=== PATIENT | male | born 1985 | race Caucasian/White ===

== ENCOUNTER 2019-07-15 16:49 | Emergency (ER) | payer SELFPAY ==
[~2019-07-15] VITALS: Ht 185.4 cm; Wt 117.9 kg
[~2019-07-15 16:49] MED LIST: Bactrim Ds Tab1 EACH PO; HYDACE5 PO; Prednisone20 MG PO; RXHYDACE PO
[2019-07-15] MEDS ORDERED: KETOROLAC TROMET5 ML TOP (19:04)
[2019-07-15] MEDS ORDERED: ERYT.5TO RIGHTEYE (19:04)
== END 2019-07-15 19:27 | disposition home or self-care (01) ==
LOC: ER 16:49
DX: T15.01XA Foreign body in cornea, right eye, initial encounter (principal); H10.9 Unspecified conjunctivitis; F17.210 Nicotine dependence, cigarettes, uncomplicated
CPT/HCPCS: 65220; 70480; 90471; 90714; 99283-25; A9270

== ENCOUNTER 2019-11-24 20:30 | Emergency (ER) | payer SELFPAY | END 2019-11-24 23:38 | disposition home or self-care (01) | LOC: ER 20:30 | DX: L02.413 Cutaneous abscess of right upper limb (principal); L03.114 Cellulitis of left upper limb; F17.210 Nicotine dependence, cigarettes, uncomplicated ==

== ENCOUNTER 2020-05-12 12:50 | Emergency (ER) | payer OTHER ==
[~2020-05-12] VITALS: Ht 185.4 cm; Wt 108.9 kg
[~2020-05-12 12:50] MED LIST changes: +CEPH500 PO; +ERYT.5TO RIGHTEYE; +KETOROLAC TROMET5 ML TOP; +Monodox100 MG PO
[2020-05-12] MEDS ORDERED: Bactrim Ds Tab1 EACH PO (15:04)
== END 2020-05-12 15:30 | disposition home or self-care (01) ==
LOC: ER 12:50
DX: L02.413 Cutaneous abscess of right upper limb (principal); L02.416 Cutaneous abscess of left lower limb; L03.116 Cellulitis of left lower limb; F17.210 Nicotine dependence, cigarettes, uncomplicated; Z23 Encounter for immunization; Z79.899 Other long term (current) drug therapy
CPT/HCPCS: 90471; 90714; 99283-25; A9270

== ENCOUNTER 2023-01-02 12:25 | Observation (INO) | payer OTHER ==
[~2023-01-02] VITALS: Ht 185.4 cm; Wt 101.9 kg
[2023-01-02 13:06] LABS: BASOPHILS ABSOLUTE AUTO 0.04 K/mm3 (0.00-0.23); BASOPHILS PERCENT AUTO 1 % (0-2); EOSINOPHILS ABSOLUTE AUTO 0.28 K/mm3 (0.00-0.68); EOSINOPHILS PERCENT AUTO 3 % (0-6); Hematocrit 45.1 % (37.0-53.0); IMMATURE GRAN ABSOLUTE AUTO 0.06 K/mm3 (0.00-0.10); IMMATURE GRAN PERCENT AUTO 1 % (0-1); LYMPHOCYTES PERCENT AUTO 26 % (21-46); MONOCYTES ABSOLUTE AUTO 0.66 K/mm3 (0.16-1.47); MONOCYTES PERCENT AUTO 8 % (4-13); Mean Corpuscular HGB 28.8 pg (26.0-34.0); Mean Corpuscular HGB Conc 33.3 g/dL (31.5-36.5); Mean Corpuscular Volume 87 fL (80-100); Mean Platelet Volume 10.3 fL (9.1-12.4); NEUTROPHILS ABSOLUTE AUTO 5.37 K/mm3 (1.96-9.15); NEUTROPHILS PERCENT AUTO 62 % (41-73); Platelet Count 229 K/mm3 (150-400); RDW Coefficient Variation 13.2 % (11.7-14.2); RDW Standard Deviation 41.4 fL (35.1-46.3); Red Blood Cell Count 5.21 M/mm3 (4.30-5.90); White Blood Cell Count 8.71 K/mm3 (4.00-11.30)
[2023-01-02 13:27] LABS: Albumin, Blood 4.3 g/dL (3.4-5.0); Albumin/Globulin Ratio 1.1 (0.8-1.8); Bilirubin, Total 0.6 mg/dL (0.1-1.0); Bun/Creatinine Ratio 19.5 (12.0-20.0); Creatinine, Blood 0.92 mg/dL (0.60-1.20); Globulin, Blood 3.8 g/dL (2.2-4.0); Potassium, Blood 3.5 mmol/L (3.5-5.5); Total Protein, Blood 8.1 g/dL (6.4-8.2)
--- NOTE | 2023-01-02 16:40 | NUR ---
ARRIVAL TO ICU PT BROUGHT TO ICU VIA GURNEY. PT TRANSFERS SELF TO ICU BED WITHOUT DIFFICULTY. HE IS RECEIVING NARCAN 1MG/HR. PT IS ALERT AND ORIENTED, PROVIDES HEALTH HISTORY. HE IS RESTLESS, FIGITING AND CONSTANTLY LOOKING AROUND THE ROOM. HE STS HE RELAPSED TODAY AND USED IV METHAMPHETAMINE THAT HE BELIEVES HAD FENTANYL IN IT. HE REPORTS HE HAS BEEN CLEAN FOR 2 YEARS BUT THIS IS THE SECOND TIME HE HAS RELAPSED. HE REPORTS HISTORY OF ALCOHOL ABUSE BUT HAS NOT DRANK IN 15YEARS. LUNGS ARE CLEAR THROUGHOUT. RA WITH SPO2 >95%. HR 90S, BP STABLE. DENIES SOB AND CP. BOWEL TONES ACTIVE, ABDOMEN SOFT. PT PROVIDED DINNER TRAY. PT REPORTS FEELING "DRY" AND PROVIDED WATER AND SODA WITH TRAY. PT REMINDED NEED OF URINE SAMPLE. HE IS CURRENTLY TALKING ON CELL PHONE TO HUNTER. BED IN LOW POSITION, CALL LIGHT WITHIN REACH, BED ALARM ON.
[2023-01-02 17:30] VITALS: BP 101/77
[2023-01-02 19:19] VITALS: BP 121/74
[2023-01-02 20:02] VITALS: BP 132/88
--- NOTE | 2023-01-02 20:03 | NUR ---
ASSUMED CARE PT IS A&O X4; SPO2 >92% ON RA; MAP >65; NSR, RATE IN THE 90'S. PT DENIES CP, SOB, OR NAUSEA. SOME DIZZINESS NOTED W/ SUDDEN MOVEMENT. PT STATES HE IS DROWSY. NO SOMNULENCE NOTED AT THIS TIME. NARCAN GTT AND LR INFUSING PER ORDER. SPOUSE AT BEDSIDE. PT IS PLEASANT AND COOPERATIVE W/ CARE.
[2023-01-02 21:00] VITALS: BP 101/67
[2023-01-02 22:00] VITALS: BP 103/60
[2023-01-03] VITALS (11 sets, daily range): BP systolic 89–114; BP diastolic 49–71
--- NOTE | 2023-01-03 00:11 | NUR ---
UPDATE NARCAN GTT ON SB. PT SLEEPING DURING EACH ASSESSMENT, BUT AWAKENS TO VOICE AND MAINTAINS ALERTNESS. PT STATES HE'S "TIRED", BUT IS NOT HAVING TROUBLE STAYING AWAKE WHEN WOKEN. VSS. RR WNL.
--- NOTE | 2023-01-03 02:30 | NUR ---
UPDATE BLADDER SCAN PT D/T NO URINE OUTPUT. PT DENIES URGE. ENCOURAGED PT TO ATTEMPT TO URINATE AND PT OUTPUT 800MLS.
[2023-01-03 02:54] LABS: U Amphetamine Screen DETECTED; U Barbituate Screen Not Detected; U Benzodiazapine Screen Not Detected; U Buprenorphine Screen Not Detected; U Cannabinoids Screen Not Detected; U Cocaine Screen Not Detected; U Methadone Screen Not Detected; U Methamphetamine Screen DETECTED; U Opiates Screen Not Detected; U Oxycodone Screen Not Detected; U Phencyclidine Screen Not Detected; U Propoxyphene Screen Not Detected
--- NOTE | 2023-01-03 05:34 | NUR ---
SHIFT SUMMARY PT IS A&O X4; SPO2 >92% ON RA; MAP >65; NSR 80'S; RR 12-14. NARCAN REMAINS ON SB W/ NO CHANGE IN NEURO. PT SPONTANEOUSLY AROUSES TO VOICE AND MAINTAINS WAKEFULNESS. SLEEPING/RESTING QUIETLY T/O MOST OF NIGHT. NO OTHER ACUTE EVENTS OVERNIGHT.
--- NOTE | 2023-01-03 09:50 | NUR ---
ASSUMED CARE CARE WAS ASSUMED OF PT AT 1900, REPORT GIVEN BY MARTHA JONES. PT A/O X4, PT ABLE TO ANSWER QUESTIONS APPROPRIATELY AND MAKE NEEDS KNOWN. PT ON RA, O2 SATS > 92%. CARDIAC MONITORING REFLECTS NSR, HR 60s. SBP 100s. 2 PIVs SL.
--- NOTE | 2023-01-03 14:03 | NUR ---
DISCHARGE NOTE PT WAS DISCHARGED FROM UNIT AT APPROXIMATELY 1200. PT VERBALIZED UNDERSTANDING OF DISCHARGE INSTRUCTIONS. PT WAS ABLE TO LEAVE UNIT INDEPENDENTLY AND STATED HE HAD TRANSPORTATION COMING TO PICK HIM UP. ALL BELONGINGS TAKEN WITH PATIENT.
== END 2023-01-03 12:00 | disposition home or self-care (01) ==
LOC: ER 12:25 → ERHOLD 12:26 → ICUE 14:37
PROVIDERS: Student in an Organized Health Care Education/Training Program; ADMIT Hospitalist
DX: T40.2X1A Poisoning by other opioids, accidental (unintentional), initial encounter (principal); G92.8 Other toxic encephalopathy; R00.1 Bradycardia, unspecified; R06.89 Other abnormalities of breathing; F15.90 Other stimulant use, unspecified, uncomplicated; F17.210 Nicotine dependence, cigarettes, uncomplicated
CPT/HCPCS: 36415; 80053; 82947; 85025; 93005; 93010; 96361; 96365; 96366; 96375; 96376; 99285-25; G0378; J2310; J2405; J7120

== ENCOUNTER → 2023-01-09 | Outpatient (CLI) | payer OTHER ==
[2023-01-09 18:07] LABS: BASOPHILS ABSOLUTE AUTO 0.05 K/mm3 (0.00-0.23); BASOPHILS PERCENT AUTO 1 % (0-2); EOSINOPHILS ABSOLUTE AUTO 0.16 K/mm3 (0.00-0.68); EOSINOPHILS PERCENT AUTO 3 % (0-6); Hematocrit 44.8 % (37.0-53.0); Hemoglobin 14.9 g/dL (13.5-17.5); IMMATURE GRAN ABSOLUTE AUTO 0.12 K/mm3 (0.00-0.10); IMMATURE GRAN PERCENT AUTO 2 % (0-1); LYMPHOCYTES ABSOLUTE AUTO 0.95 K/mm3 (0.84-5.20); LYMPHOCYTES PERCENT AUTO 15 % (21-46); MONOCYTES ABSOLUTE AUTO 0.49 K/mm3 (0.16-1.47); MONOCYTES PERCENT AUTO 8 % (4-13); Mean Corpuscular HGB Conc 33.3 g/dL (31.5-36.5); Mean Corpuscular Volume 87 fL (80-100); Mean Platelet Volume 10.8 fL (9.1-12.4); NEUTROPHILS ABSOLUTE AUTO 4.61 K/mm3 (1.96-9.15); NEUTROPHILS PERCENT AUTO 72 % (41-73); Platelet Count 241 K/mm3 (150-400); RDW Coefficient Variation 13.6 % (11.7-14.2); RDW Standard Deviation 43.5 fL (35.1-46.3); Red Blood Cell Count 5.13 M/mm3 (4.30-5.90); White Blood Cell Count 6.38 K/mm3 (4.00-11.30)
[2023-01-09 19:53] LABS: Alanine Aminotransfer (ALT/SGP 50 U/L (12-78); Albumin, Blood 3.8 g/dL (3.4-5.0); Alk Phos 84 U/L (50-136); Anion Gap 8 mmol/L (6-16); Aspartate Aminotrans (AST/SGOT 28 U/L (12-37); Bilirubin, Total 0.2 mg/dL (0.1-1.0); Blood Urea Nitrogen 13 mg/dL (8-24); Bun/Creatinine Ratio 13.5 (12.0-20.0); CHOL/HDL RATIO 2.5; CO2, Blood 27 mmol/L (21-32); Calcium, Blood 8.4 mg/dL (8.5-10.1); Chloride, Blood 103 mmol/L (98-108); Cholesterol 119 mg/dL (50-200); Creatinine, Blood 0.96 mg/dL (0.60-1.20); Globulin, Blood 3.7 g/dL (2.2-4.0); Glomerular Filtration Rate 103 (60-); Glucose, Blood 89 mg/dL (70-99); HDL Cholesterol 47 mg/dL (>39); Low Density Lipoprotein Chol 48 mg/dL (0-110); Sodium, Blood 138 mmol/L (136-145); Total Protein, Blood 7.5 g/dL (6.4-8.2); Triglycerides 119 mg/dL (30-140); Very Low Density Lipoprot Chol 23 mg/dL (6-28)
[2023-01-11 00:08] LABS: HIV AB/P24 AG SCREEN Non Reactive (Non Reactive)
== END | disposition home or self-care (01) ==
LOC: LAB 17:13 → LAB SHORT 17:13
PROVIDERS: Nurse Practitioner Family
DX: Z11.59 Encounter for screening for other viral diseases (principal); E66.9 Obesity, unspecified
CPT/HCPCS: 80053; 80061; 83036; 84443; 85025; 86803; 87389